=== PATIENT | male | born 1985 | race Caucasian/White ===

== ENCOUNTER 2019-03-04 16:28 | Emergency (ER) | payer BC ==
--- NOTE | 2019-03-04 16:51 | Emergency Department Record ---
History of Present Illness - General Chief complaint: Pain Stated complaint: THINKS HE PULLED A MUSCLE Time Seen by Provider: 03/04/19 16:42 Source: Patient Mode of Arrival: Ambulatory Limitations: No limitations - History of Present Illness Initial comments: 33 yo male presents to ED for evaluation of left sided rib pain that worsens with deep breaths, trunk movement. Patient denies fevers, chills, or cough symptoms, denies recent illness. Patient also denies calf pain, swelling, or history of DV/immobilization. Patient does report lifting a heavy motorcycle 2 days ago resulting in trunk movement and twisting, has been taking Ibuprofen which does improve his symptoms. MD Complaint: Other Onset/Timin -: Days(s) Location: Left Severity scale (1-10): 8 Quality: Aching, Dull Consistency: Intermittent Improves with: Rest Worsens with: Other (Movement, deep breaths) - Related Data Home Medications Medication Instructions Recorded Confirmed Last Taken No Home Med [NO HOME MEDS] 03/04/19 03/04/19 Unknown Allergies Allergy/AdvReac Type Severity Reaction Status Date / Time Penicillins Allergy HIVES Verified 03/04/19 16:39 sulfamethoxazole Allergy HIVES Verified 03/04/19 16:39 [From Bactrim] trimethoprim [From Bactrim] Allergy HIVES Verified 03/04/19 16:39 Travel Screening - Travel/Exposure Within Last 30 Days Have you traveled within the last 30 days?: No - Travel/Exposure Within Last Year Have you traveled outside the [place] in the last year?: No - Additonal Travel Details Have you been exposed to anyone with a communicable illness?: No - Travel Symptoms Symptom Screening: None Review of Systems Constitutional: Denies: Chills, Fever, Malaise, Night sweats Eyes: Denies: Eye discharge, Eye pain ENT: Denies: Congestion, Dental pain, Ear pain Respiratory: Denies: Cough, Dyspnea Cardiovascular: Denies: Chest pain, Dyspnea on exertion Endocrine: Denies: Fatigue, Heat or cold intolerance Gastrointestinal: Denies: Abdominal pain, Nausea, Vomiting Genitourinary: Denies: Incontinence, Retention Musculoskeletal: Reports: Other (Left rib pain). Denies: Arthralgia, Back pain, Gout, Joint swelling Skin: Denies: Bruising, Change in color Neurological: Denies: Abnormal gait, Confusion, Headache, Tingling, Tremors Psychiatric: Denies: Anxiety Hematological/Lymphatic: Denies: Anemia, Blood Clots Past Medical History - SOCIAL HISTORY Smoking Status: Former smoker Alcohol Use: None Drug Use: None - RESPIRATORY Hx Respiratory Disorders: No - CARDIOVASCULAR Hx Cardio Disorders: No - NEURO Hx Neuro Disorders: No - GI Hx GI Disorders: No - Hx Genitourinary Disorders: No - ENDOCRINE Hx Endocrine Disorders: No - MUSCULOSKELETAL Hx Musculoskeletal Disorders: No - PSYCH Hx Psych Problems: No - HEMATOLOGY/ONCOLOGY Hx Hematology/Oncology Disorders: No Family Medical History Any Significant Family History?: Yes Family Hx Comment (NOT TO BE USED IN PLACE OF ITEMS BELOW): "none'really" Physical Exam - General General Appearance: Alert, Oriented x3, Cooperative, No acute distress Limitations: No limitations - Head Head exam: Atraumatic, Normocephalic, Normal inspection Head exam detail: negative: Abrasion, Contusion, Meade's sign, General tenderness, Hematoma, Laceration - Eye Eye exam: Normal appearance. negative: Conjunctival injection, Periorbital swelling, Periorbital tenderness, Scleral icterus - ENT Ear exam: negative: Auricular hematoma, Auricular trauma Nasal Exam: negative: Active bleeding, Discharge, Dried blood, Foreign body Mouth exam: negative: Drooling, Laceration, Muffled voice, Tongue elevation - Neck Neck exam: Normal inspection. negative: Meningismus, Tenderness - Respiratory Respiratory exam: Normal lung sounds bilaterally, Chest wall tenderness (TTP to the left anterio-lateral chest wall along lower ribs, pain is reproducible with movement of the trunk, palpation, and deep breaths.). negative: Rhonchi, Stridor, Wheezes - Cardiovascular Cardiovascular Exam: Regular rate, Normal rhythm, Normal heart sounds - GI/Abdominal GI/Abdominal exam: Soft. negative: Distended, Rebound, Rigid, Tenderness - Rectal Rectal exam: Deferred - exam: Deferred - Extremities Extremities exam: Normal inspection. negative: Pedal edema, Tenderness - Back Back exam: Denies: CVA tenderness (R), CVA tenderness (L) - Neurological Neurological exam: Alert, Normal gait, Oriented X3 - Psychiatric Psychiatric exam: Normal affect, Normal mood - Skin Skin exam: Normal color. negative: Abrasion Type of lesion: negative: abrasion Course Vital Signs 03/04/19 16:34 Temperature 98.5 F Pulse Rate 80 Respiratory 20 Rate Blood Pressure 157/82 Pulse Ox 97 - Reevaluation(s) Reevaluation #1: 03/04/19 16:57 EKG: NSR 69 Normal axis, normal intervals No acute ST-T wave changes Reevaluation #2: 03/04/19 17:34 CXR: No acute process PERC clinical decision rule was applied, and the patient does not have any of the following: -Age > 50 years -Pulse > 100 -Oxygen Saturation < 94% -History of Hemoptysis -Unilateral leg swelling -History or PE/DVT -Recent surgery or Trauma -Oral contraceptive/Hormone use Patient was updated on all results, history and examination appear c/w chest wall strain. Patient was counseled re: symptomatic treatment with Ibuprofen 600-800 mg as directed. Patient appears stable for discharge at this time. Disposition Disposition: Discharge Clinical Impression: Chest wall muscle strain Qualifiers: Encounter type: initial encounter Qualified Code(s): S29.011A - Strain of muscle and tendon of front wall of thorax, initial encounter Disposition: Home, Self-Care Condition: (2) Stable Instructions: Chest Wall Pain (ED) Additional Instructions: Return to the ED if your symptoms worsen or if you have any concerns. Ibuprofen as directed. Follow-up with your family doctor in 3-5 days as directed. Forms: Patient Portal Access Time of Disposition: 17:35 Quality - Quality Measures Quality Measures: N/A - Blood Pressure Screening Does Patient Have Any of the Following: No Blood Pressure Classification: Pre-Hypertensive BP Reading Systolic Measurement: 141 Diastolic Measurement: 85 Screening for High Blood Pressure: < Pre-Hypertensive BP, F/U Documented > [[id number]] Pre-Hypertensive Follow-up Interventions: Referral to alternative/primary care provider.
--- NOTE | 2019-03-04 17:32 | RADIOLOGY REPORT ---
EXAMINATION: Frontal and Lateral Chest EXAM DATE: 03/04/2019 5:15 PM INDICATION: left sided rib pain FINDINGS: Frontal and lateral views show clear lungs, normal heart size, and normal hilar and mediast inal structures. IMPRESSION: Normal chest. Dictated by: Kaz Bailey MD on 03/04/2019 5:27 PM. .
== END 2019-03-04 17:43 | disposition home or self-care (01) ==
LOC: ER 16:28
DX: S29.011A Strain of muscle and tendon of front wall of thorax, initial encounter (principal); X50.0XXA Overexertion from strenuous movement or load, initial encounter; Z87.891 Personal history of nicotine dependence
CPT/HCPCS: 71046; 93005; 93010; 99284